=== PATIENT | male | born 1970 | race Caucasian/White ===

== ENCOUNTER → 2019-06-15 | Outpatient (CLI) | payer BC ==
--- NOTE | 2019-06-15 16:24 | PCVCIMAG ---
APPROVED REPORT Study performed: 06/15/2019 14:12:41 EXAM: Comprehensive 2D, Doppler, and color-flow Echocardiogram Patient Location: Echo lab Status: routine BSA: 2.46 HR: 90 bpmBP: 130/100 mmHg Rhythm: NSR Other Information Study Quality: Technically Difficult Risk Factors: Cardiac Risk Factors: HTN, Hyperlipidemia Indications Abnormal ECG 2D Dimensions IVSd: 14.08 (7-11mm)LVOT Diam: 19.63 (18-24mm) LVDd: 36.94 mm PWd: 15.64 (7-11mm)Ascending Ao: 32.45 (22-36mm) LVDs: 29.11 (25-40mm) Left Atrium: 36.51 (27-40mm) Aortic Root: 29.79 mm LV Single Plane 2CH: 67.29 % Volumes Left Atrial Volume (Systole) Single Plane 4CH: 27.79 mLSingle Plane 2CH: 24.20 mL LA ESV Index: 11.00 mL/m2 Aortic Valve AoV Peak Madhu.: 1.77 m/s AO Peak Gr.: 12.59 mmHgLVOT Max P.27 mmHg LVOT Max V: 1.15 m/s FLAVIO Vmax: 1.96 cm2 Mitral Valve E/A Ratio: 0.8 MV Decel. Time: 181.76 ms MV E Max Madhu.: 0.77 m/s MV A Madhu.: 0.94 m/s TDI E/Lateral E': 8.56E/Medial E': 8.56 Medial E' Madhu.: 0.09 m/s Lateral E' Madhu.: 0.09 m/s Pulmonary Valve PV Peak Gr.: 3.83 mmHg Pulmonary Vein P Vein S: 0.56 m/sP Vein A: 0.42 m/s P Vein D: 0.46 m/sP Vein A Dur.: 100.3 msec P Vein S/D Ratio: 1.22 Tricuspid Valve TR Peak Madhu.: 2.06 m/s TR Peak Gr.: 17.03 mmHg Left Ventricle The left ventricle is normal size. There is normal LV segmental wall motion. There is normal left ventricular wall thickness. Left ventricular systolic function is normal. The left ventricular ejection fraction is within the normal range. LVEF is 55%. Grade I - abnormal relaxation pattern. Right Ventricle The right ventricle is normal size. The right ventricular systolic function is normal. Atria The left atrium size is normal. The right atrium size is normal. Aortic Valve The aortic valve is normal in structure. No aortic regurgitation is present. There is no aortic valvular stenosis. Mitral Valve The mitral valve is normal in structure. There is no mitral valve regurgitation noted. No evidence of mitral valve stenosis. Tricuspid Valve The tricuspid valve is normal in structure. Trace tricuspid regurgitation. Pulmonary artery pressure is 23mmHg. Pulmonic Valve The pulmonary valve is normal in structure. There is no pulmonic valvular regurgitation. Great Vessels The aortic root is normal in size. IVC is normal in size and collapses >50% with inspiration. Pericardium There is no pericardial effusion. <Conclusion> The left ventricle is normal size. There is normal left ventricular wall thickness. Left ventricular systolic function is normal. Grade I - abnormal relaxation pattern. The right ventricle is normal size. The left atrium size is normal. The aortic valve is normal in structure. There is no mitral valve regurgitation noted. Trace tricuspid regurgitation. Pulmonary artery pressure is 23mmHg.
== END | disposition home or self-care (01) ==
LOC: PCVCIMAG 13:57
PROVIDERS: ATTEND Internal Medicine Cardiovascular Disease
DX: R06.09 Other forms of dyspnea (principal); I10 Essential (primary) hypertension; E78.5 Hyperlipidemia, unspecified
CPT/HCPCS: 93306

== ENCOUNTER → 2019-06-16 | Outpatient (CLI) | payer BC ==
--- NOTE | 2019-06-16 15:52 | PCVCIMAG ---
APPROVED REPORT Imaging Protocol: Rest Tc-99m/Stress Tc-99m 1 day Study performed: 06/16/2019 13:01:01 Indication: Abnormal EKG, OSPINA, Inadequate Images for SE Patient Location: Out-Patient Stress Nurse: Dayana Forman RN OK Tech:BRADEN IrvinMT Ht: 6 ft 1 in Wt: 273 lbs BSA: 2.46 m2 HR: 91 bpm BP: 148/87 mmHg BMI: 36.01 Rhythm: Sinus Rhythm Medical History Medical History: Age, HLP, HTN, DM (non-insulin) Medications: Valsartan, Crestor Allergies: Flu Vaccine Resting Data Rest SPECT myocardial perfusion imaging was performed in supine position 45 minutes following the intravenous injection of 14.2 mCi of Tc-99m Sestamibi. Time of rest injection: 1300 Date: 06/16/2019 Administration Route: IV Administration Site: Right AC Exercise Stress At peak stress, the patient was injected intravenously with 42.8mCi of Tc-99m Sestamibi. Time of stress injection: 1415 Date: 06/16/2019 Administration Route: IV Administration Site: Right AC Patient continued to exercise for 1 minute(s). Gated Stress SPECT was performed 45 minutes after stress injection. The images were gated to evaluate regional wall motion and calculate left ventricular ejection fraction. Stress Test Details Stress Test: Exercise stress testing was performed using a Tyson protocol. HRMax Heart Rate (APMHR): 172 bpm Resting HR: 91 bpmTarget HR (85% APMHR): 146 bpm Max HR Achieved: 181 bpm % of APMHR: 105 Recovery HR: 117 bpm BP Resting BP: 148/87 mmHg Max BP: 174/90 mmHg Recovery BP: 142/78 mmHg ECG Resting ECG: Sinus Rhythm Stress ECG: Sinus Tachycardia ST Change: Non-ischemic Arrhythmia: None Recovery ECG: Sinus Tachycardia Clinical Reason for Termination: Maximal effort Stress Symptoms: Dyspnea Exercise duration: 7 min 17 sec Exercise capacity: 10.10 METs Symptoms resolved during recovery. Study Quality Study: Good Study Data Post stress, the left ventricular ejection was 71%.. SSS: 0 SRS: 0 SDS: 0 TID = 0.85. Perfusion Normal left ventricular perfusion. Normal perfusion on both the stress and rest images. Wall Motion Normal left ventricular wall motion. Nuclear Conclusion ECG Findings: negative for ischemia Clinical Findings: negative for ischemia Nuclear Findings: negative for ischemia Exercise Capacity: below average Left Ventricular Function: normal Risk Study: low This study is of low probability for inducible ischemia or prior infarct. Normal global and segmental LV systolic function.
== END | disposition home or self-care (01) ==
LOC: PCVCIMAG 12:49
PROVIDERS: ATTEND Internal Medicine Cardiovascular Disease
DX: I10 Essential (primary) hypertension (principal); E11.9 Type 2 diabetes mellitus without complications; R94.31 Abnormal electrocardiogram [ECG] [EKG]; E78.5 Hyperlipidemia, unspecified
CPT/HCPCS: 78452; 93017; A9500